=== PATIENT | female | born 1990 | race Caucasian/White ===

== ENCOUNTER 2022-03-11 13:49 | Emergency (ER) | payer MEDICAID, SELFPAY ==
[2022-03-11 14:02] VITALS: BP 126/79; PULSE 84; RESP 16; TEMP 36.6; O2SAT 96; BMI 25.0
--- NOTE | 2022-03-11 14:38 | ED.GENADULT ---
HPI - General Adult General Chief complaint: Headache/Migraine Stated complaint: Needs Detox Time Seen by Provider: 03/11/22 13:57 History of Present Illness HPI narrative: This 31-year-old female comes in requesting detox and states that she does not feel well. She was part of a treatment pleural g and had been sober for a couple months. The treatment program discharged her because she relapsed by taking alcohol again. She states that she has been using alcohol regularly over the past 4 5 days. Her last drink was about 2-1/2 hours prior to arrival. She does not feel any symptoms of withdrawal but thinks that that likely would happen. She has not had a seizure or other complication in the past regarding withdrawal symptoms. She denies using any street drugs and states that her health has been good otherwise. She reports headache and nausea. Related Data Allergies Allergy/AdvReac Type Severity Reaction Status Date / Time No Known Drug Allergies Allergy Verified 03/11/22 14:01 Review of Systems Status of ROS: Reports: 10 or more systems reviewed and unremarkable except as noted in History and below Narrative: Constitutional: No fevers, no weight gain or loss. Eyes: No discharge. No vision changes. HENT: No congestion, no sore throat, no ear pain. Cardiovascular: No chest pain, no palpitations. Respiratory: No shortness of breath, no wheezes, no cough. Gastrointestinal: No abdominal pain, no vomiting, no diarrhea. She reports nausea. Genitourinary: No dysuria, no hematuria. Musculoskeletal: Normal range of motion. Skin: No rashes, no pruritis. Neurological: No dizziness, weakness, sensory change, speech change. Endo/Heme/Allergies: No bruising or bleeding. No polydipsia. Pysch: no suicidality, no anxiety, no insomnia. Alcohol intoxication and abuse. All other systems reviewed and are negative. PFSH PFSH Social History Smoking Status: Light tobacco smoker What tobacco products do you use: cigarettes Do you use any of these nicotine containing products: None Second hand tobacco smoke exposure: No How often do you have a drink containing alcohol: 4 or more times a week How many standard drinks containing alcohol do you have on a typical day: 5 or 6 How often do you have six or more drinks on one occasion: Daily or almost daily AUDIT-C Alcohol total score: 10 Non-prescribed substance use: denies use service: No Exam Narrative: Exam Narrative: Constitutional: Well-developed, well-nourished, no acute distress. HEENT: Normocephalic, atraumatic. Neck: Normal range of motion. Nontender. Supple. Heart: Regular. No murmurs. Normal rate. Intact distal pulses. Lungs: Clear to auscultation. No chest discomfort. No wheezes, rhonchi, or rales. Abdomen: Normal bowel sounds. Nontender. No rebound tenderness. Genitalia: Deferred. Back: No midline tenderness. Normal range of motion. Extremities: Normal range of motion. No injury. Skin: Intact. No rash. Warm. No erythema or pallor. Neurologic: No altered sensation. No weakness. Alert and oriented. Psychiatric: No suicidality. No anxiety or depression. No insomnia. Nursing notes and vitals signs are reviewed. Const: Vital Signs, click to edit/add: Vital Signs - 24 hr 03/11/22 14:02 Temperature 97.8 F Pulse Rate [Pulse Oximeter] 84 Respiratory Rate 16 Blood Pressure [Le ft Upper Arm] 126/79 Pulse Oximetry 96 Oxygen Delivery Me thod Room Air Course Vital Signs Vital signs: Initial Vital Signs Temperature 97.8 F 03/11/22 14:02 Temperature Source Temporal Artery Scan 03/11/22 14:02 Pulse Rate 84 03/11/22 14:02 Pulse Rhythm 03/11/22 14:02 Respiratory Rate 16 03/11/22 14:02 Blood Pressure 126/79 03/11/22 14:02 Blood Pressure Mean 94 03/11/22 14:02 Blood Pressure Position Supine 03/11/22 14:02 Pulse Oximetry 96 03/11/22 14:02 Oxygen Delivery Method 03/11/22 14:02 Vital Signs Temperature 97.8 F 03/11/22 14:02 Pulse Rate 84 03/11/22 14:02 Respiratory Rate 16 03/11/22 14:02 Blood Pressure 126/79 03/11/22 14:02 Pulse Oximetry 96 03/11/22 14:02 Oxygen Delivery Method 03/11/22 14:02 Temperature 97.8 F 03/11/22 14:02 Pulse Rate 84 03/11/22 14:02 Respiratory Rate 16 03/11/22 14:02 Blood Pressure 126/79 03/11/22 14:02 Pulse Oximetry 96 03/11/22 14:02 Oxygen Delivery Method 03/11/22 14:02 Medical Decision Making MDM Narrative Medical decision making narrative: This patient came in seeking help for feeling poorly after abusing alcohol and was interested in going to detox. She was hoping to feel better with IV fluids and nausea medicine. She states now that she wants to go home. She states that the IV did not go in so nicely and she just wants to return home. She is now declining any further interventions. She is of sound mind and is okay to be discharged with someone to give her a ride home. Discharge Plan Discharge Clinical Impression: Alcohol abuse Patient Disposition: Home w/ Parent or Adult Condition: Unchanged Additional Instructions: Follow-up with primary physician. Return if worsening symptoms happen. Follow Up/Referrals: Provider,Not a Local [Primary Care Provider] - Stand Alone Forms: [employer] Info Instructions
--- NOTE | 2022-03-11 15:15 | ED.NURSE ---
Attempted to start IV. Pt unwilling to keep arm still, despite frequent redirection. Pt requesting another nurse to attempt, raising voice at this author. Therapeutic communication and de-escalation methods attempted. Primary nurse informed.
--- NOTE | 2022-03-11 15:16 | ED.NURSE ---
went to start iv and give meds. she was in tears and did not want to have another nurse to start her iv and give her meds. was on the phone with her friend and they will pick her up, dr georges was informed of pts' request.
== END 2022-03-11 15:25 | disposition home or self-care (01) ==
PROVIDERS: Emergency Provider Emergency Medicine Emergency Medical Services
DX: F10.139 Alcohol abuse with withdrawal, unspecified (principal)
CPT/HCPCS: 80048; 80076; 82077; 83690; 85025; 99283; 99284

== ENCOUNTER 2022-04-21 14:56 | Outpatient (CLI) | payer MEDICAID, SELFPAY ==
--- NOTE | 2022-04-21 15:00 | CRLHL7_ITS ---
For Patients: As a result of the Century Cures Act, medical imaging exams and procedure reports are released immediately into your electronic medical record. You may view this report before your referring provider. If you have questions, please contact your health care provider. INDICATION: THYROID PAIN COMPARISON: none TECHNIQUE: Dave scale and color Doppler images were acquired of the thyroid gland. FINDINGS: The thyroid gland demonstrates normal uniform echogenicity and has a smooth outer contour. The right lobe measures 4.3 x 1.2 x 1.5 cm and the left lobe measures 3.3 x 0.8 x 1.1 cm in size. The isthmus measures 2 millimeters. There are no suspicious masses or nodules. The color Doppler images demonstrate normal vascularity. There is no evidence of cervical lymphadenopathy or parathyroid mass. IMPRESSION: Normal thyroid ultrasound. Dictated by Miko Aburto MD @ 04/21/2022 3:57:59 PM (Electronically Signed)
== END 2022-04-21 14:57 | disposition home or self-care (01) ==
LOC: US 14:57
PROVIDERS: PCP Student in an Organized Health Care Education/Training Program; Visit Provider Family Medicine
DX: E07.89 Other specified disorders of thyroid (principal)
CPT/HCPCS: 76536

== ENCOUNTER 2022-11-24 20:53 | Emergency (ER) | payer MEDICAID, SELFPAY ==
[2022-11-24 20:55] VITALS: BP 127/89; PULSE 78; RESP 18; TEMP 36.5; O2SAT 98; BMI 23.3
--- NOTE | 2022-11-24 21:44 | ED.GENADULT ---
HPI - General Adult General Chief complaint: Extremity Pain/Injury, Upper Stated complaint: L pointer finger laceration Time Seen by Provider: 11/24/22 21:32 Source: patient Mode of arrival: ambulatory History of Present Illness HPI narrative: 31-year-old female presents the emergency department 2 hours after she cut her finger on a new kitchen knife while slicing a watermelon. Injury is to the left index finger, distal phalanx, near the lateral edge of the 2nd dorsal nail. She reports that she tried applying pressure but was unable to get the bleeding to stop entirely. No numbness or tingling. She does not use any anticoagulants. No difficulty moving finger. No other areas of injury. Her tetanus shot is up-to-date. Has not taken any medication to help with her pain. She states that her past medical history is benign, denies long-term health problems. Uses trazodone as needed for sleep. Denies allergies. ROS is negative for other generalized, musculoskeletal, neurological or skin changes Related Data Home Medications Medication Instructions Recorded Confirmed hydroxyzine HCl 50 mg tablet 50 mg PO Q4H PRN itch 11/24/22 11/24/22 trazodone 50 mg tablet 50 mg PO QPM 11/24/22 11/24/22 Allergies Allergy/AdvReac Type Severity Reaction Status Date / Time No Known Drug Allergies Allergy Verified 11/24/22 20:59 [facility] Medical History Influenza ?J11.1 - Influenza due to unidentified influenza virus with other respiratory manifestations (ICD-10) Social History Smoking Status: Current every day smoker What tobacco products do you use: cigarettes Smoking packs per day: 0.5 Smoking cigarettes per day: 10.0 Years smoked: 3 Smoking pack-years: 1.50 Do you use any of these nicotine containing products: None Second hand tobacco smoke exposure: No How often do you have a drink containing alcohol: never AUDIT-C Alcohol total score: 0 Non-prescribed substance use: denies use service: No Exam Const: Vital Signs, click to edit/add: Vital Signs - 24 hr 11/24/22 20:55 Temperature 97.7 F Pulse Rate [Pulse Oximeter] 78 Respiratory Rate 18 Blood Pressure [Ri ght Upper Arm] 127/89 Pulse Oximetry 98 Oxygen Delivery Me thod Room Air Documenting provider has reviewed patient's vital signs: yes Common normals: no apparent distress General appearance: cooperative Other: Insight seems fair. No signs of intoxication. Eye: Common normals: conjunctivae normal General eye: normal appearance of both eyes Conjunctiva: conjunctiva(e) normal Other: Good eye contact, normal visual tracking. Resp: Common normals: normal respiratory effort and no use of accessory muscles Effort & inspection: able to speak in complete sentences Extremity: Other: Normal range of motion of left wrist and hand. 1.5 cm laceration in area described of left index finger, medial dorsal aspect, near nail, nail not affected. Does not involve the DIP joint or other parts of the hand. Bleeds mildly with manipulation. Has normal flexion, extension abduction and adduction of fingers. Neuro: Speech: speech normal Motor exam: no movement abnormalities noted Psych: Mood and affect: euthymic mood Insight: fair Judgement: fair Skin: Narrative: Other than the small laceration on the left index finger as described above, no other areas of injury or trauma Course Course Hospital Course: Counseled patient on repair options. Since it does want to keep bleeding, I do recommend closure. Discussed risks and benefits of Dermabond versus Steri-Strips and suture. Recommended Steri-Strips. Area was examined, no evidence of foreign body seen. Cleansed with alcohol wipe. Mastisol applied. Half-inch Steri-Strips applied with luis under tension with good hemostasis and reapproximation. Well tolerated. Patient was counseled to keep dry for the next several hours. Avoid soaking for the next 48 hours. Instructed to use rubber gloves with cleaning, dishes, etc. since she asked specifically about these. Avoid soaking for lungs. As of time in the tub it is okay to gently shower beginning tomorrow morning. Try to keep clean and dry as much as possible. The Steri-Strips will fall off on their own in about a week. Okay to use Tylenol and/or ibuprofen as needed for discomfort. Alarm symptoms reviewed that would warrant ED presentation. She verbalizes understanding and agreement Vital Signs Vital signs: Initial Vital Signs Temperature 97.7 F 11/24/22 20:55 Temperature Source Temporal Artery Scan 11/24/22 20:55 Pulse Rate 78 11/24/22 20:55 Respiratory Rate 18 11/24/22 20:55 Blood Pressure 127/89 11/24/22 20:55 Blood Pressure Mean 101 11/24/22 20:55 Blood Pressure Position Sitting 11/24/22 20:55 Pulse Oximetry 98 11/24/22 20:55 Oxygen Delivery Method Room Air 11/24/22 20:55 Vital Signs Temperature 97.7 F 11/24/22 20:55 Pulse Rate 78 11/24/22 20:55 Respiratory Rate 18 11/24/22 20:55 Blood Pressure 127/89 11/24/22 20:55 Pulse Oximetry 98 11/24/22 20:55 Oxygen Delivery Method Room Air 11/24/22 20:55 Temperature 97.7 F 11/24/22 20:55 Pulse Rate 78 11/24/22 20:55 Respiratory Rate 18 11/24/22 20:55 Blood Pressure 127/89 11/24/22 20:55 Pulse Oximetry 98 11/24/22 20:55 Oxygen Delivery Method Room Air 11/24/22 20:55 Discharge Plan Discharge Clinical Impression: Finger laceration Patient Disposition: Home, Self-Care Condition: Improved Instructions: Steristrips (ED) Additional Instructions: There are no signs of foreign body or infection in the finger. There are no signs of any injury to the nerves, tendons or blood supply. Steri-Strips were applied, this will help the wound heal. No washing the hands are getting wet for the next 8 hours. 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 Keep showers and baths to a minimum amount of time. It is okay to take Tylenol and/or ibuprofen for pain. Infection is very unlikely but if you start to notice purulent drainage, increased redness, fevers or other signs of infection, it should be re-evaluated within a few hours. The Steri-Strips will fall off on their own in 5-7 days. The wound will continue to heal in the meantime. Do not apply any antibiotic ointment or other products to promote more healing while the Steri-Strips are in place. Activity Level: Activity as Tolerated Discharge Diet: Regular Prescriptions: No Action trazodone 50 mg tablet 50 mg PO QPM hydroxyzine HCl 50 mg tablet 50 mg PO Q4H PRN (Reason: itch) Follow Up/Referrals: RADHA MIX DO [Primary Care Provider] - Stand Alone Forms: [employer] Info Instructions
== END 2022-11-24 21:48 | disposition home or self-care (01) ==
PROVIDERS: Emergency Provider Family Medicine; PCP Student in an Organized Health Care Education/Training Program
DX: S61.211A Laceration without foreign body of left index finger without damage to nail, initial encounter (principal); W26.0XXA Contact with knife, initial encounter
CPT/HCPCS: 99282